=== PATIENT | male | born 1930 | race Caucasian/White ===

== ENCOUNTER → 2017-11-28 | Outpatient (CLI) | payer MEDICARE, OTHER ==
[~2017-11-28] MED LIST: NO RTN MEDS
--- NOTE | 2017-11-28 13:41 | RADIOLOGY IMAGING REPORT ---
FACILITY: [facility] [place] PATIENT NAME: Raj Anderson : 1930 MR: [id number] V: [id number] EXAM DATE: ORDERING PHYSICIAN: JOSÉ MIGUEL SORIANO TECHNOLOGIST: Location: [facility] Patient: Raj Anderson : 1930 Visit/Account:[id number] Date of Sevice: 11/28/2017 THYROID HISTORY: Thyroid nodules COMPARISON: April 30, 2016 FINDINGS: SIZE: Normal. Right lobe: 4.7 x 2 x 1.7 cm Left lobe: 4.4 x 1.3 x 1.4 cm Isthmus: 5 mm PARENCHYMA: Homogeneous. NODULES: Right lobe: * There Is partially cystic nodule in the inferior right lobe measuring 1.8 cm in diameter and has i ncreased in size when compared the prior study. Left lobe: * There are several subcentimeter hypoechoic nodules in the inferior left lobe Isthmus: * None discrete. VASCULARITY: Within normal limits. ADDITIONAL FINDINGS: None. IMPRESSION: There is a partially cystic nodule inferior aspect the right lobe measuring 1.8 mm in diameter which has increased in size when compared the prior study therefore ultrasound-guided fine-needle aspiratio n is recommended REFERENCE: 2015 [place] [employer] Management Guidelines for Adult Patients with Thyroid Nodules and D ifferentiated Thyroid Cancer: The [place] [employer] Guidelines Task Force on Thyroid Nodul es and Differentiated Thyroid Cancer. SONOGRAPHIC PATTERNS: * Benign: Purely cystic nodules (no solid component); estimated risk of malignancy <1 percent; no bi opsy recommended. * Very Low Suspicion: Spongiform or partially cystic nodules without any of the sonographic features described in low, intermediate, or high suspicion patterns; estimated risk of malignancy <3 percent; consider FNA at > 2 cm (Observation without FNA is also a reasonable option). * Low Suspicion: Isoechoic or hyperechoic solid nodule, or partially cystic nodule with eccentric so lid areas, without microcalcification, irregular margin or ETE (extra-thyroidal extension), or taller than wide shape; estimated risk of malignancy 5-10 percent; recommend FNA at >1.5 cm. * Intermediate Suspicion: Hypoechoic solid nodule with smooth margins without microcalcifications, E TE (extra-thyroidal extension), or taller than wide shape; estimated risk of malignancy 10-20 percent ; recommend FNA at > 1 cm. * High Suspicion: Solid hypoechoic nodule or solid hypoechoic component of a partially cystic nodule with one or more of the following features: irregular margins (infiltrative, microlobulated), microc alcifications, taller than wide shape, rim calcifications with small extrusive soft tissue component, evidence of ETE (extra-thyroidal extension); estimated risk of malignancy >70-90 percent; recommend FNA at > 1 cm. NOTES: * Although a sonographically suspicious subcentimeter thyroid nodule without evidence of extrathyroi krissy extension or sonographically suspicious lymph nodes may be observed with close sonographic follow -up rather than pursuing immediate FNA, patient age and preference may modify decision-making. A > 50% interval increase in nodule volume and/or development of new suspicious sonographic features are felt to be a valid reasons for potential re-aspiration of a nodule previously shown to have benig n FNA cytology. Report Dictated By: Janina Arceo MD at 11/28/2017 1:34 PM Report E-Signed By: Janina Arceo MD at 11/28/2017 1:36 PM WSN:[email or web address]
== END ==
LOC: US 04:05
PROVIDERS: ATTEND Internal Medicine
DX: E04.2 Nontoxic multinodular goiter (principal)
CPT/HCPCS: 76536

== ENCOUNTER → 2019-01-21 | Outpatient (CLI) | payer OTHER ==
--- NOTE | 2019-01-21 16:39 | RADIOLOGY IMAGING REPORT ---
FACILITY: [facility] [place] PATIENT NAME: Raj Anderson : 1930 MR: [id number] V: [id number] EXAM DATE: [id number] ORDERING PHYSICIAN: JOSÉ MIGUEL SORIANO TECHNOLOGIST: Location: [facility] Patient: Raj Anderson : 1930 Visit/Account:[id number] Date of Sevice: 01/21/2019 THYROID HISTORY: History of thyroid nodules COMPARISON: November 28, 2017 FINDINGS: SIZE: Right lobe: 4.7 x 2.1 x 1.4 cm Left lobe: 5.3 x 2.2 x 1.7 cm Isthmus: 5 mm PARENCHYMA: Homogeneous. NODULES: Right lobe: * In the inferior right lobe there is a 2 x 1.8 x 2 cm predominant a cystic nodule which has increas ed in size when compared the prior study previous measuring 1.8 cm. There is a 5 mm cyst in the mid right lobe Left lobe: * In the mid to inferior left lobe there is a 1 x 1 x 1 cm complex partially cystic nodule which is increased from 8 mm previously. Also on the mid to inferior left lobe there is a predominantly cysti c nodule measuring 8 mm in diameter which is unchanged Isthmus: * None discrete. VASCULARITY: Within normal limits. ADDITIONAL FINDINGS: None. IMPRESSION: The probably cystic nodule in the inferior right lobe has increased slightly in size measuring 2 x 1. 8 x 2 cm previously measuring 1.8 cm in maximum dimension 1 cm complex partially cystic nodule in the mid to inferior left lobe is minimally increased from 8 m m previously REFERENCE: 2015 [place] [employer] Management Guidelines for Adult Patients with Thyroid Nodules and D ifferentiated Thyroid Cancer: The [place] [employer] Guidelines Task Force on Thyroid Nodul es and Differentiated Thyroid Cancer. SONOGRAPHIC PATTERNS: * Benign: Purely cystic nodules (no solid component); estimated risk of malignancy <1 percent; no bi opsy recommended. * Very Low Suspicion: Spongiform or partially cystic nodules without any of the sonographic features described in low, intermediate, or high suspicion patterns; estimated risk of malignancy <3 percent; consider FNA at > 2 cm (Observation without FNA is also a reasonable option). * Low Suspicion: Isoechoic or hyperechoic solid nodule, or partially cystic nodule with eccentric so lid areas, without microcalcification, irregular margin or ETE (extra-thyroidal extension), or taller than wide shape; estimated risk of malignancy 5-10 percent; recommend FNA at >1.5 cm. * Intermediate Suspicion: Hypoechoic solid nodule with smooth margins without microcalcifications, E TE (extra-thyroidal extension), or taller than wide shape; estimated risk of malignancy 10-20 percent ; recommend FNA at > 1 cm. * High Suspicion: Solid hypoechoic nodule or solid hypoechoic component of a partially cystic nodule with one or more of the following features: irregular margins (infiltrative, microlobulated), microc alcifications, taller than wide shape, rim calcifications with small extrusive soft tissue component, evidence of ETE (extra-thyroidal extension); estimated risk of malignancy >70-90 percent; recommend FNA at > 1 cm. NOTES: * Although a sonographically suspicious subcentimeter thyroid nodule without evidence of extrathyroi krissy extension or sonographically suspicious lymph nodes may be observed with close sonographic follow -up rather than pursuing immediate FNA, patient age and preference may modify decision-making. A > 50% interval increase in nodule volume and/or development of new suspicious sonographic features are felt to be a valid reasons for potential re-aspiration of a nodule previously shown to have benig n FNA cytology. Report Dictated By: Janina Arceo MD at 01/21/2019 4:28 PM Report E-Signed By: Janina Arceo MD at 01/21/2019 4:34 PM WSN:[email or web address]
== END ==
LOC: US 12-16 00:20
PROVIDERS: ATTEND Internal Medicine
DX: E04.2 Nontoxic multinodular goiter (principal)
CPT/HCPCS: 76536